=== PATIENT | female | born 1965 | race Caucasian/White ===

== ENCOUNTER 2019-04-04 17:08 | Emergency (ER) | payer OTHER ==
[2019-04-04 17:15] VITALS: BP 119/98
--- OUTSIDE RECORDS SUMMARY | 2019-04-04 17:23 | XMS REPORT ---
:1965 Author Organization [facility] Care Team Providers Name Role Phone Valerie Gutierrez Primary Care Physician Unavailable Allergies, Adverse Reactions, Alerts Allergy Code CodeSystem Reaction Severity Criticality Status Start Substance Date Moderate Medications Medication Medication Medication Start Stop Route Dose Status Fill Code CodeSystem Date Date Instructions trazodone 359675 RxNorm 2017-12- oral 150 mg completed for 30 - 04- tablet day(s) buspirone 305013 RxNorm 2018-07- oral 15 mg completed for 30 -06 09-19 tablet day(s) sertraline 827021 RxNorm 2018-05- oral 100 mg 1 completed Take 1 tablet -07 09-18 tablet twice a day twice a for 30 day(s) day trazodone 177860 RxNorm 2018-05- oral 150 mg 1 completed Take 1 tablet -04 28-18 tablet at bedtime at as needed for bedtime 30 day(s) sertraline 266703 RxNorm 2017-12 2019- oral 100 mg completed for 30 - 04-19 tablet day(s) sertraline 252898 RxNorm 2018-05- oral 100 mg active for 30 -19 12-18 tablet day(s) buspirone 943931 RxNorm 2018-03- oral 15 mg completed for 30 - 07-18 tablet day(s) buspirone 868613 RxNorm 2018-08- oral 15 mg active for 30 -19 12-18 tablet day(s) trazodone 817991 RxNorm 2018-07- oral 150 mg active for 30 -20 12-18 tablet day(s) Problems Problem Name Code CodeSystem Alternate Alternate Start End Status Narrative Code CodeSystem Date Date Recurrent [id number] SNOMED-CT 2019-0 Active depressive 4-05 disorder, current episode moderate 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, unspecified Relevant diagnostic tests/laboratory data Narrative No Information Procedures Procedure Code CodeSystem Target Date of Status Service Device Device Device Name Site Procedure Delivery Code Name UID Location Psychotherap [id number] SNOMED-CT () 2018-07-12 complete Mental y, 30 87 d Health- minutes with [facility] patient [address] with an [facility], and [facility], service [id number] (List [id number] separately in addition to the code for primary procedure) Psychotherap [id number] SNOMED-CT () 2018-06-06 complete Mental y, 45 04 d Health- minutes with [facility], [id number] [id number] Psychotherap [id number] SNOMED-CT () 2018-06-19 complete Mental y, 45 04 d Health- minutes with [address], [id number] Psychotherap [id number] SNOMED-CT () 2018-07-03 complete Mental y, 45 04 d Health- minutes with [facility], [id number] [id number] Psychotherap [id number] SNOMED-CT () 2018-07-18 complete Mental y, 45 04 d Health- minutes with [facility], [id number] Psychotherap 930476 SNOMED-CT () 2018-07-31 complete Mental y, 45 04 d Health- minutes with [facility], [id number] [id number] Psychotherap [id number] SNOMED-CT () 2018-09-11 complete Mental y, 45 04 d Health- minutes with [facility], [id number] [id number] Psychotherap 729192 SNOMED-CT () 2018-12-06 complete Mental y, 45 04 d Health- minutes with [address], [id number] [id number] Psychotherap 080571 SNOMED-CT () 2018-12-27 complete Mental y, 45 04 d Health- minutes with [facility], [id number] [id number] Psychotherap 364014 SNOMED-CT () 2019-01-14 complete Mental y, 45 04 d Health- minutes with [facility] patient [address], [id number] [id number] Psychotherap [id number] SNOMED-CT () 2019 complete Mental y, 45 04 d Health- minutes with [address], [id number] [id number] Psychotherap [id number] SNOMED-CT () 2019-02-27 complete Mental y, 45 04 d Health- minutes with [facility] patient [address], [id number] [phone] Psychotherap [id number] SNOMED-CT () 2018-08-28 complete Mental y, 45 04 d Health- minutes with [address], [id number] [id number] Psychotherap [id number] SNOMED-CT () 2018-09-25 complete Mental y, 45 04 d Health- minutes with [facility] patient [address], [id number] [phone] Psychotherap 102249 SNOMED-CT () 2018-10-11 complete Mental y, 45 04 d Health- minutes with [address], [id number] [id number] Psychotherap [id number] SNOMED-CT () 2018-10-25 complete Mental y, 45 04 d Health- minutes with [address], [id number] [id number] Psychotherap [id number] SNOMED-CT () 2018-11-08 complete Mental y, 45 04 d Health- minutes with [facility] patient [address], [id number] [id number] Psychotherap 687053 SNOMED-CT () 2018-11-22 complete Mental y, 45 04 d Health- minutes with [facility] patient [address], [id number] [phone] Office or [id number] SNOMED-CT () 2018-10-08 complete Mental other 7 d Health- outpatient [facility] visit for [address], established [id number] patient, [phone] which requires at least 2 of these 3 tavarez components: An expanded problem focused history; An expanded problem focused examination; Medical decision making of [facility] Office or [id number] SNOMED-CT () 2018-08-09 complete Mental other 7 d Health- outpatient [facility] visit for [address], established [id number] patient, [phone] which requires at least 2 of these 3 tavarez components: An expanded problem focused history; An expanded problem focused examination; Medical decision making of [facility] Office or [id number] SNOMED-CT () 2018-06-08 complete Mental other 7 d Health- outpatient [place] visit for [address], established [id number] patient, [phone] which requires at least 2 of these 3 tavarez components: An expanded problem focused history; An expanded problem focused examination; Medical decision making of [facility] Office or [id number] SNOMED-CT () 2018-07-12 complete Mental other 6 d Health- outpatient [facility] visit for [address], established [id number] patient, [phone] which requires at least 2 of these 3 tavarez components: A problem focused history; A problem focused examination; [facility] medical decision making. [facility] Office or [id number] SNOMED-CT () 2018-12-10 complete Mental other 6 d Health- outpatient [facility] visit for [address], established [id number] patient, [phone] which requires at least 2 of these 3 tavarez components: A problem focused history; A problem focused examination; [facility] [place] medical decision making. [facility] Office or [id number] SNOMED-CT () 2019-02-04 complete Mental other 6 d Health- outpatient [facility] visit for [address], established [id number] patient, [phone] which requires at least 2 of these 3 tavarez components: A problem focused history; A problem focused examination; [facility] [place] medical decision making. [facility] SNOMED-CT () 2018-05-23 complete Mental d [facility] [address] [place], [place], [id number] Encounters/Encounter Diagnoses Encounter Name Encounter Diagnosis Diagnosis Diagnosis Date of Service Code Code Name CodeSystem Diagnosis Delivery Location Psychotherapy - [id number] Post-traumati SNOMED-CT 2019-02-27 Behavioral Individual 30 c stress Health min disorder, [facility] [address] unspecified [place], [place], [id number] Vital Signs No Information Social History Element Description Description Start End Code CodeSystem AdditionalInfo Date Date SexAssignedAtBirth Female 1964-02 F AdministrativeGender 2-18 Hospital Discharge Instructions Reason For Referral Medical Equipment FDA Assessments
--- OUTSIDE RECORDS SUMMARY | 2019-04-04 17:23 | XMS REPORT ---
:1965 Author Organization [facility] Care Team Providers Name Role Phone Valerie Gutierrez Primary Care Physician Unavailable Allergies, Adverse Reactions, Alerts Allergy Code CodeSystem Reaction Severity Criticality Status Start Substance Date Moderate Medications Medication Medication Medication Start Stop Route Dose Status Fill Code CodeSystem Date Date Instructions sertraline 397870 RxNorm 2017-12- oral 100 mg completed for 30 -03 06-19 tablet day(s) sertraline 917507 RxNorm 2018-05- oral 100 mg active for 30 -07 02-18 tablet day(s) trazodone 850294 RxNorm 2018-05- oral 150 mg 1 completed Take 1 tablet -04 28-18 tablet at bedtime at as needed for bedtime 30 day(s) trazodone 933067 RxNorm 2017-12- oral 150 mg completed for 30 -03 06-03 tablet day(s) sertraline 252854 RxNorm 2018-05- oral 100 mg 1 completed Take 1 tablet -07 09-18 tablet twice a day twice a for 30 day(s) day buspirone 107161 RxNorm 2018-07- oral 15 mg completed for 30 -18 -19 tablet day(s) trazodone 327975 RxNorm 2018-07- oral 150 mg active for 30 -20 12-18 tablet day(s) buspirone 063286 RxNorm 2018-03- oral 15 mg completed for 30 - 07-18 tablet day(s) buspirone 427050 RxNorm 2018-08- oral 15 mg active for 30 - 12-18 tablet day(s) Problems Problem Name Code CodeSystem Alternate Alternate Start End Status Narrative Code CodeSystem Date Date Recurrent [id number] SNOMED-CT 2019-0 Active depressive 4-05 disorder, current episode moderate Post-traumat 54927830 SNOMED-CT 2019-0 Active ic stress 3-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, service [id number] (List [id number] separately in addition to the code for primary procedure) Psychotherap [id number] SNOMED-CT () 2018-06-06 complete Mental y, 45 04 d Health- minutes with [facility], [id number] [phone] Psychotherap 794881 SNOMED-CT () 2018-06-19 complete Mental y, 45 04 d Health- minutes with [address], [id number] [id number] Psychotherap 954263 SNOMED-CT () 2018-07-03 complete Mental y, 45 04 d Health- minutes with [place], [id number] [id number] Psychotherap 723673 SNOMED-CT () 2018-07-18 complete Mental y, 45 04 d Health- minutes with [place], [id number] [phone] Psychotherap [id number] SNOMED-CT () 2018-07-31 complete Mental y, 45 04 d Health- minutes with [facility], [id number] [id number] Psychotherap 338875 SNOMED-CT () 2018-09-11 complete Mental y, 45 04 d Health- minutes with [facility], [id number] [phone] Psychotherap 044368 SNOMED-CT () 2018-12-06 complete Mental y, 45 04 d Health- minutes with [address], [id number] [phone] Psychotherap 931731 SNOMED-CT () 2018-12-27 complete Mental y, 45 04 d Health- minutes with [facility], [id number] [id number] Psychotherap 942016 SNOMED-CT () 2019-01-14 complete Mental y, 45 04 d Health- minutes with [facility] patient [address], [id number] [id number] Psychotherap 848318 SNOMED-CT () 2018-08-28 complete Mental y, 45 04 d Health- minutes with [facility] patient [address], [id number] [id number] Psychotherap 099620 SNOMED-CT () 2018-09-25 complete Mental y, 45 04 d Health- minutes with [facility] patient [address], [id number] [phone] Psychotherap 340210 SNOMED-CT () 2018-10-11 complete Mental y, 45 04 d Health- minutes with [facility] patient [address], [id number] [phone] Psychotherap 980658 SNOMED-CT () 2018-10-25 complete Mental y, 45 04 d Health- minutes with [facility] patient [address], [id number] [phone] Psychotherap 156284 SNOMED-CT () 2018-11-08 complete Mental y, 45 04 d Health- minutes with [facility] patient [address], [id number] [phone] Psychotherap [id number] SNOMED-CT () 2018-11-22 complete Mental y, 45 04 d Health- minutes with [facility] patient [address], [id number] [phone] Office or [id number] SNOMED-CT () 2018-10-08 complete Mental other 7 d Health- outpatient [facility] visit for [address], established [id number] patient, [phone] which requires at least 2 of these 3 tavarez components: An expanded problem focused history; An expanded problem focused examination; Medical decision making of [facility] Office or [id number] SNOMED-CT () 2018-08-09 complete Mental other 7 d Health- outpatient [place] visit for [address], established [id number] patient, [phone] which requires at least 2 of these 3 tavarez components: An expanded problem focused history; An expanded problem focused examination; Medical decision making of [facility] Office or [id number] SNOMED-CT () 2018-06-08 complete Mental other 7 d Health- outpatient [facility] visit for [address], [facility] [id number] patient, [phone] which requires at least 2 of these 3 tavarez components: An expanded problem focused history; An expanded problem focused examination; Medical decision making of [facility] or [id number] SNOMED-CT () 2018-07-12 complete Mental other 6 d Health- outpatient [place] visit for [address], [facility] [id number] patient, [phone] which requires at least 2 of these 3 tavarez components: A problem focused history; A problem focused examination; [facility] medical decision making. [facility] Office or [id number] SNOMED-CT () 2018-12-10 complete Mental other 6 d Health- outpatient [facility] visit for [address] [id number] patient, [phone] which requires at least 2 of these 3 tavarez components: A problem focused history; A problem focused examination; [facility] medical decision making. [facility] SNOMED-CT () 2018-05-23 complete Mental d Health- [facility], [id number] [phone] Encounters/Encounter Diagnoses Encounter Name Encounter Diagnosis Diagnosis Diagnosis Date of Service Code Code Name CodeSystem Diagnosis Delivery Location [facility] [id number] Post-traumati SNOMED-CT 2019-01-14 Behavioral Individual 30 c stress Health min disorder, [place] [address] unspecified [place], [place], [id number] Vital Signs No Information Social History Element Description Description Start End Code CodeSystem AdditionalInfo Date Date SexAssignedAtBirth Female 1965-1 F AdministrativeGender 2-18 Hospital Discharge Instructions Reason For Referral Medical Equipment FDA Assessments
--- OUTSIDE RECORDS SUMMARY | 2019-04-04 17:23 | XMS REPORT ---
:1965 Author Organization [facility] Care Team Providers Name Role Phone Paula Gutierrezh Primary Care Physician Unavailable Allergies, Adverse Reactions, Alerts Allergy Code CodeSystem Reaction Severity Criticality Status Start Substance Date Moderate Medications Medication Medication Medication Start Stop Route Dose Status Fill Code CodeSystem Date Date Instructions trazodone 631791 RxNorm 2018-05- oral 150 mg 1 completed Take 1 tablet -04 28-18 tablet at bedtime at as needed for bedtime 30 day(s) trazodone 825415 RxNorm 2017-12- oral 150 mg completed for 30 - 04-03 tablet day(s) sertraline 051340 RxNorm 2017-12- oral 100 mg completed for 30 -03 06-19 tablet day(s) buspirone 592931 RxNorm 2018-03- oral 15 mg completed for 30 -09 09-18 tablet day(s) sertraline 953538 RxNorm 2018-05- oral 100 mg 1 completed Take 1 tablet -07 09-18 tablet twice a day twice a for 30 day(s) day buspirone 241823 RxNorm 2018-08- oral 15 mg active for 30 -19 12-18 tablet day(s) sertraline 657672 RxNorm 2018-05- oral 100 mg active for 30 -19 12-18 tablet day(s) buspirone 435164 RxNorm 2018-07- oral 15 mg completed for 30 -18 -19 tablet day(s) trazodone 948069 RxNorm 2018-07- oral 150 mg active for 30 -20 12-18 tablet day(s) Problems Problem Name Code CodeSystem Alternate Alternate Start End Status Narrative Code CodeSystem Date Date Post-traumat 82637570 SNOMED-CT 2018- Active ic stress 3-22 disorder, unspecified Recurrent 34207390 SNOMED-CT 0 Active depressive 4-05 disorder, current episode moderate Relevant diagnostic tests/laboratory data Narrative No Information Procedures Procedure Code CodeSystem Target Date of Status Service Device Device Device Name Site Procedure Delivery Code Name UID Location Psychotherap [id number] SNOMED-CT () 2018-07-12 complete Mental y, 30 87 d Health- minutes with [facility] patient [address] with an [facility], and [facility], service [id number] (List [id number] separately in addition to the code for primary procedure) Psychotherap [id number] SNOMED-CT () 2018-06-06 complete Mental y, 45 04 d Health- minutes with [facility], [id number] [phone] Psychotherap 291143 SNOMED-CT () 2018-06-19 complete Mental y, 45 04 d Health- minutes with [facility], [id number] [phone] Psychotherap 758155 SNOMED-CT () 2018-07-03 complete Mental y, 45 04 d Health- minutes with [place], [id number] [phone] Psychotherap 194850 SNOMED-CT () 2018-07-18 complete Mental y, 45 04 d Health- minutes with [facility], [id number] [phone] Psychotherap 649957 SNOMED-CT () 2018-07-31 complete Mental y, 45 04 d Health- minutes with [place], [id number] [phone] Psychotherap 733390 SNOMED-CT () 2018-09-11 complete Mental y, 45 04 d Health- minutes with [facility], [id number] [phone] Psychotherap 708817 SNOMED-CT () 2018-12-06 complete Mental y, 45 04 d Health- minutes with [place], [id number] [phone] Psychotherap 622632 SNOMED-CT () 2018-12-27 complete Mental y, 45 04 d Health- minutes with [place], [id number] [phone] Psychotherap 844952 SNOMED-CT () 2019-01-14 complete Mental y, 45 04 d Health- minutes with [place] patient [address], [id number] [phone] Psychotherap 747188 SNOMED-CT () 2019 complete Mental y, 45 04 d Health- minutes with [facility] patient [address], [id number] [phone] Psychotherap 822309 SNOMED-CT () 2018-08-28 complete Mental y, 45 04 d Health- minutes with [facility] patient [address], [id number] [id number] Psychotherap 999313 SNOMED-CT () 2018-09-25 complete Mental y, 45 04 d Health- minutes with [place] patient [address], [id number] [phone] Psychotherap 041894 SNOMED-CT () 2018-10-11 complete Mental y, 45 04 d Health- minutes with [facility] patient [address], [id number] [phone] Psychotherap 283395 SNOMED-CT () 2018-10-25 complete Mental y, 45 04 d Health- minutes with [place] patient [address], [id number] [phone] Psychotherap 606927 SNOMED-CT () 2018-11-08 complete Mental y, 45 04 d Health- minutes with [facility] patient [address], [id number] [phone] Psychotherap 044232 SNOMED-CT () 2018-11-22 complete Mental y, 45 04 d Health- minutes with [place] patient [address], [id number] [phone] Office or [id number] SNOMED-CT () 2018-10-08 complete Mental other 7 d Health- outpatient [facility] visit for [address], of an [place], established [id number] patient, [phone] which requires at least 2 of these 3 tavarez components: An expanded problem focused history; An expanded problem focused examination; Medical decision making of [facility] Office or [id number] SNOMED-CT () 2018-08-09 complete Mental other 7 d Health- outpatient [facility] visit for [address], established [id number] patient, [phone] which requires at least 2 of these 3 tavarez components: An expanded problem focused history; An expanded problem focused examination; Medical decision making of [facility] Office or 060613 SNOMED-CT () 2018-06-08 complete Mental other 7 d Health- outpatient [place] visit for [address], established [id number] patient, [phone] which requires at least 2 of these 3 tavarez components: An expanded problem focused history; An expanded problem focused examination; Medical decision making of [facility] Office or [id number] SNOMED-CT () 2018-07-12 complete Mental other 6 d Health- outpatient [place] visit for [address], established [id number] patient, [phone] which requires at least 2 of these 3 tavarez components: A problem focused history; A problem focused examination; [facility] [place] medical decision making. [facility] Office [place] [id number] SNOMED-CT () 2018-12-10 complete Mental other 6 d Health- outpatient [place] visit for [address], established [id number] patient, [phone] which requires at least 2 of these 3 tavarez components: A problem focused history; A problem focused examination; [facility] medical decision making. [facility] Office [place] [id number] SNOMED-CT () 2019-02-04 complete Mental other 6 d Health- outpatient [place] visit for [address], established [id number] patient, [phone] which requires at least 2 of these 3 tavarez components: A problem focused history; A problem focused examination; [facility] medical decision making. [facility] SNOMED-CT () 2018-05-23 complete Mental d Health- [place] [address], [id number] [phone] Encounters/Encounter Diagnoses Encounter Name Encounter Diagnosis Diagnosis Diagnosis Date of Service Code Code Name CodeSystem Diagnosis Delivery Location [facility] [id number] Post-traumati SNOMED-CT 2019 Behavioral Individual 30 c stress Health min disorder, [facility] [address] unspecified [place], [place], [id number] Vital Signs No Information Social History Element Description Description Start End Code CodeSystem AdditionalInfo Date Date SexAssignedAtBirth Female 1965-1 F AdministrativeGender 2-18 Hospital Discharge Instructions Reason For Referral Medical Equipment FDA Assessments
--- OUTSIDE RECORDS SUMMARY | 2019-04-04 17:23 | XMS REPORT ---
:1965 Author Organization [facility] Care Team Providers Name Role Phone Valerie Gutierrez Primary Care Physician Unavailable Allergies, Adverse Reactions, Alerts Allergy Code CodeSystem Reaction Severity Criticality Status Start Substance Date Moderate Medications Medication Medication Medication Start Stop Route Dose Status Fill Code CodeSystem Date Date Instructions trazodone 902905 RxNorm 2018-05- oral 150 mg 1 completed Take 1 tablet -11-07 tablet at bedtime at as needed for bedtime 30 day(s) buspirone 101831 RxNorm 2018-03- oral 15 mg completed for 30 -09 09-18 tablet day(s) buspirone 731921 RxNorm 2018-07- oral 15 mg completed for 30 -18 -19 tablet day(s) sertraline 916300 RxNorm 2018-05- oral 100 mg active for 30 -19 -18 tablet day(s) trazodone 527670 RxNorm 2017-12- oral 150 mg completed for 30 -14 04-03 tablet day(s) sertraline 601132 RxNorm 2017-12 2019- oral 100 mg completed for 30 -14 -19 tablet day(s) trazodone 690975 RxNorm 2018-07- oral 150 mg active for 30 -20 -18 tablet day(s) sertraline 898419 RxNorm 2018-05- oral 100 mg 1 completed Take 1 tablet -07 09-18 tablet twice a day twice a for 30 day(s) day buspirone 520393 RxNorm 2018-08- oral 15 mg active for 30 -19 -18 tablet day(s) Problems Problem Name Code CodeSystem Alternate Alternate Start End Status Narrative Code CodeSystem Date Date Recurrent 17350925 SNOMED-CT 2019-0 Active depressive 4-05 disorder, current episode moderate 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, service [id number] (List [id number] separately in addition to the code for primary procedure) Psychotherap [id number] SNOMED-CT () 2018-06-06 complete Mental y, 45 04 d Health- minutes with [facility], [id number] [id number] Psychotherap [id number] SNOMED-CT () 2018-06-19 complete Mental y, 45 04 d Health- minutes with [address], [id number] [id number] Psychotherap [id number] SNOMED-CT () 2018-07-03 complete Mental y, 45 04 d Health- minutes with [place], [id number] [id number] Psychotherap [id number] SNOMED-CT () 2018-07-18 complete Mental y, 45 04 d Health- minutes with [facility], [id number] [id number] Psychotherap [id number] SNOMED-CT () 2018-07-31 complete Mental y, 45 04 d Health- minutes with [place], [id number] [phone] Psychotherap [id number] SNOMED-CT () 2018-09-11 complete Mental y, 45 04 d Health- minutes with [facility], [id number] [id number] Psychotherap [id number] SNOMED-CT () 2018-12-06 complete Mental y, 45 04 d Health- minutes with [address], [id number] [id number] Psychotherap [id number] SNOMED-CT () 2018-12-27 complete Mental y, 45 04 d Health- minutes with [place], [id number] [phone] Psychotherap [id number] SNOMED-CT () 2019-01-14 complete Mental y, 45 04 d Health- minutes with [place] patient [address], [id number] [id number] Psychotherap [id number] SNOMED-CT () 2018-08-28 complete Mental y, 45 04 d Health- minutes with [facility] patient [address], [id number] [id number] Psychotherap [id number] SNOMED-CT () 2018-09-25 complete Mental y, 45 04 d Health- minutes with [facility] patient [address], [id number] [phone] Psychotherap [id number] SNOMED-CT () 2018-10-11 complete Mental y, 45 04 d Health- minutes with [place] patient [address], [id number] [phone] Psychotherap [id number] SNOMED-CT () 2018-10-25 complete Mental y, 45 04 d Health- minutes with [facility] patient [address], [id number] [id number] Psychotherap [id number] SNOMED-CT () 2018-11-08 complete Mental y, 45 04 d Health- minutes with [place] patient [address], [id number] [id number] Psychotherap [id number] SNOMED-CT () 2018-11-22 complete Mental y, 45 04 d Health- minutes with [facility] patient [address], [id number] [phone] Office [place] [id number] SNOMED-CT () 2018-10-08 complete Mental other 7 d Health- outpatient [place] visit for [address], established [id number] patient, [id number] which requires at least 2 of these 3 tavarez components: An expanded problem focused history; An expanded problem focused examination; Medical decision making of [facility] Office [place] [id number] SNOMED-CT () 2018-08-09 complete Mental other 7 d Health- outpatient [facility] visit for [address], established [id number] patient, [id number] which requires at least 2 of these 3 tavarez components: An expanded problem focused history; An expanded problem focused examination; Medical decision making of [facility] or [id number] SNOMED-CT () 2018-06-08 complete Mental other 7 d Health- outpatient [facility] visit for [address], established [id number] patient, [id number] which requires at least 2 of these 3 tavarez components: An expanded problem focused history; An expanded problem focused examination; Medical decision making of [facility] or [id number] SNOMED-CT () 2018-07-12 complete Mental other 6 d Health- outpatient [facility] visit for [address], [facility] [place] [id number] patient, [id number] which requires at least 2 of these 3 tavarez components: A problem focused history; A problem focused examination; [place] medical decision making. [facility] Office or [id number] SNOMED-CT () 2018-12-10 complete Mental other 6 d Health- outpatient [place] visit for [address], [facility] [place] [id number] patient, [phone] which requires at least 2 of these 3 tavarez components: A problem focused history; A problem focused examination; [place] medical decision making. [facility] Office or [id number] SNOMED-CT () 2019-02-04 complete Mental other 6 d Health- outpatient [place] visit for [address], established [id number] patient, [id number] which requires at least 2 of these 3 tavarez components: A problem focused history; A problem focused examination; [place] [facility] () 2018-05-23 complete Mental d Health- [place] [address], [id number] [phone] Encounters/Encounter Diagnoses Encounter Name Encounter Diagnosis Diagnosis Diagnosis Date of Service Code Code Name CodeSystem Diagnosis Delivery Location [facility] [id number] Post-traumati SNOMED-CT 2019 Behavioral Individual 30 c stress Health min disorder, Clinic , , unspecified , Vital Signs No Information Social History Element Description Description Start End Code CodeSystem AdditionalInfo Date Date SexAssignedAtBirth Female 1964-02 F AdministrativeGender 2-18 Hospital Discharge Instructions Reason For Referral Medical Equipment FDA Assessments
[2019-04-04] MEDS ORDERED: Albuterol/Ipratropium NEB.SOL* Albuterol 2.5 MG/Ipratropium 0.5 MG 3 ML INH ONE (17:58)
[2019-04-04] MEDS ORDERED: A lbuterol Hfa (PREPAK) 1 MDI - ED TAKE HOME DISPENSING ONLY INHH ONE (19:17)
--- NOTE | 2019-04-04 19:17 | ED ---
Respiratory - HPI Summary HPI Summary: 54 year old female presents with cough for the past month. She admits occasional sore throat. She states she has been short of breath. Has had occasional dry cough. She states her fevers have resolved. She states that she ran out of her inhaler. She is concerned that this may get worse. She is nonsmoker. She denies abdominal pain. No chest pain currently. No nausea vomiting. She has some nasal congestion. - History of Current Complaint Chief Complaint: EDGeneral Stated Complaint: GENERAL ILLNESS PER PT Time Seen by Provider: 04/04/19 17:49 Pain Intensity: 6 Sputum Amount: None - Allergy/Home Medications Allergies/Adverse Reactions: Allergies Allergy/AdvReac Type Severity Reaction Status Date / Time Penicillins Allergy Anaphylatic Verified 04/04/19 17:14 Shock valsartan [From Diovan] Allergy Hives Verified 04/04/19 17:14 PMH/Surg Hx/FS Hx/Imm Hx Endocrine/Hematology History: Reports: Hx Diabetes - BORDERLINE Cardiovascular History: Reports: Hx Angina, Hx Hypercholesterolemia, Hx Hypertension Denies: Hx Coronary Artery Disease, Hx Myocardial Infarction, Hx Pacemaker/ ICD Respiratory History: Reports: Hx Asthma, Other Respiratory Problems/Disorders - HX PNA Denies: Hx Chronic Obstructive Pulmonary Disease (COPD) History: Denies: Hx Chronic Renal Failure, Hx Renal Disease Sensory History: Denies: Hx Hearing Aid Psychiatric History: Denies: Hx Panic Disorder - Cancer History Hx Chemotherapy: No Hx Radiation Therapy: No - Surgical History Surgery Procedure, Year, and Place: C SECTION 06/1999. BREAST REDUCTION -2001. Rt KNEE- ARTHROSCOPIC- 05/2003. TUBAL LIGATION. BOWEL- REPAIR - THEN INFECTION - I&D ALSO - Immunization History Immunizations Up to Date: Yes Infectious Disease History: No Infectious Disease History: Denies: Traveled Outside the [place] in Last 30 Days - Family History Known Family History: Negative: Blood Disorder - Social History Alcohol Use: Rare Substance Use Type: Reports: None Hx Tobacco Use: No Smoking Status (MU): Never Smoked Tobacco Review of Systems Positive: Fever Negative: Chest Pain Positive: Shortness Of Breath, Cough Negative: Abdominal Pain All Other Systems Reviewed And Are Negative: Yes Physical Exam Triage Information Reviewed: Yes Vital Signs On Initial Exam: Initial Vitals Temp Pulse Resp BP Pulse Ox 97.3 F 90 20 119/98 94 04/04/19 17:11 04/04/19 17:11 04/04/19 17:11 04/04/19 17:11 04/04/19 17:11 Vital Signs Reviewed: Yes Appearance: Positive: Well-Appearing Skin: Positive: Warm, Dry Head/Face: Positive: Normal Head/Face Inspection Eyes: Positive: Normal, EOMI, KENTRELL, Conjunctiva Clear ENT: Positive: Normal ENT inspection, Pharynx normal, TMs normal Respiratory/Lung Sounds: Positive: Breath Sounds Present, Wheezes Cardiovascular: Positive: Normal, RRR Abdomen Description: Positive: Nontender, Soft Bowel Sounds: Positive: Present Musculoskeletal: Positive: Normal Neurological: Positive: Normal Psychiatric: Positive: Normal Procedures - Sedation Patient Received Moderate/Deep Sedation with Procedure: No Diagnostics - Vital Signs Vital Signs Temp Pulse Resp BP Pulse Ox 04/04/19 18:17 16 04/04/19 17:11 97.3 F 90 20 119/98 94 - Laboratory Lab Statement: Any lab studies that have been ordered have been reviewed, and results considered in the medical decision making process. - Radiology chest Radiology Interpretation Completed By: ED Physician Summary of Radiographic Findings: no pneumonia Re-Evaluation - Re-Evaluation First Eval Re-Evaluation Time: 19:00 Change: Improved Comment: lungs CTA Disposition - Course Course Of Treatment: 54 year old female presents with cough for the past month. She admits occasional sore throat. She states she has been short of breath. Has had occasional dry cough. She states her fevers have resolved. She states that she ran out of her inhaler. She is concerned that this may get worse. She is nonsmoker. She denies abdominal pain. No chest pain currently. No nausea vomiting. She has some nasal congestion. On exam slight wheezing noted. Improved after breathing treatment. Will place on prednisone. Given inhaler to home with. Chest x-ray normal. Told to follow up primary. Patient understands and agrees with plan. - Differential Dx - Cardiopulmonary Differential Diagnoses - Cardiopulmonary: Bronchitis, Influenza, Lower Resp Infection - Diagnoses Provider Diagnoses: Bronchitis Discharge ED - Sign-Out/Discharge Documenting (check all that apply): Patient Departure - Discharge Plan Condition: Good Disposition: HOME Prescriptions: Albuterol HFA INHALER* [Ventolin HFA Inhaler*] 1 - 2 puff INH Q4H PRN #1 mdi PRN Reason: Shortness Of Breath predniSONE 50 mg TAB [Deltasone 50 mg TAB] 50 mg PO DAILY #4 tab Patient Education Materials: Acute Bronchitis (ED) Referrals: Deisi Masters MD [Primary Care Provider] - Additional Instructions: Use inhaler up to two puffs every 4 hours for cough and wheezing Take steroid once a day for 4 more days starting tomorrow Take Tylenol or ibuprofen for pain every 6 hours Follow up with primary within 5 days Return to ED if develop any new or worsening symptoms - Billing Disposition and Condition Condition: GOOD Disposition: Home
== END 2019-04-04 19:56 | disposition home or self-care (01) ==
LOC: ED 17:08
DX: J40 Bronchitis, not specified as acute or chronic (principal); R73.03 Prediabetes; I10 Essential (primary) hypertension; Z88.0 Allergy status to penicillin; Z88.8 Allergy status to other drugs, medicaments and biological substances
CPT/HCPCS: 71046; 99283; A9270-GY; J7512

== ENCOUNTER 2020-02-17 12:53 | Inpatient (IN) ==
[2020-02-17 14:56] LABS: ABS Lymphocytes 0.7 10^3/ul (1.0-4.8); ABS Monocytes 0.3 10^3/ul (0-0.8); ABS Neutrophils 5.4 10^3/ul (1.5-7.7); Eosinophil % 0.6 %; Hematocrit 40 % (35-47); Hemoglobin 12.6 g/dL (12.0-16.0); Lymphocyte % 10.2 %; Mean Corpuscular HGB Conc 32 g/dL (31-36); Mean Corpuscular Hemoglobin 29 pg (27-31); Mean Corpuscular Volume 92 fL (80-97); Mean Platelet Volume 8.2 fL (7.4-10.4); Platelet Count 192 10^3/uL (150-450); Red Blood Count 4.34 10^6 /uL (3.70-4.87); Red Cell Distribution Width 21 % (10-15); White Blood Count 6.4 10^3/uL (3.5-10.8)
[2020-02-17 15:21] LABS: Troponin I 0.01 ng/mL (<0.03)
[2020-02-17 15:35] LABS: Albumin 3.7 g/dL (3.2-5.2); Albumin/Globulin Ratio 1.5 (1-3); BUN/Creatinine Ratio 30.1 (8-20); C Reactive Protein 5.25 mg/L (<8.01); Calcium 9.2 mg/dL (8.6-10.3); EGFR African American 86.4 (>60); EGFR Non-African American 71.4 (>60); Globulin 2.4 g/dL (2-4); Potassium 4.1 mmol/L (3.5-5.0); Total Bilirubin 0.5 mg/dL (0.2-1.0); Total Protein 6.1 g/dL (6.4-8.9)
[2020-02-17] MEDS ORDERED: Iodixanol (CONTRAST) 320 MG/ML 100 ML SDV IV ONE ×3 (16:46→22:12)
[2020-02-17 17:29] LABS: Activated Partial Thrombo Time 28.1 seconds (26.0-38.0); INR 0.99 (0.82-1.09)
[2020-02-17] MEDS ORDERED: NS 0.9% 1000 ml BAG 1,000 ML IV ONE (18:00)
[2020-02-17 21:13] LABS: TSH Ultra Thyroid Stim Horm 1.37 mcIU/mL (0.34-5.60)
[2020-02-18] MEDS ORDERED: Furosemide 40 mg/4 ml IV VIAL IV SLOW PU ONE ×2 (02:06→06:00)
[2020-02-18] MEDS ORDERED: Albuterol HFA INHALER 8 gm MDI INH PRN (04:03)
[2020-02-18] MEDS: Enoxaparin 60 MG/0.6 ML SYR SUBCUT SCH (06:54)
[2020-02-18 06:58] LABS: ABS Eosinophils 0.1 10^3/ul (0-0.6); ABS Lymphocytes 0.6 10^3/ul (1.0-4.8); ABS Monocytes 0.6 10^3/ul (0-0.8); ABS Neutrophils 5.9 10^3/ul (1.5-7.7); Eosinophil % 1.4 %; Hematocrit 41 % (35-47); Hemoglobin 12.9 g/dL (12.0-16.0); Lymphocyte % 8.4 %; Mean Corpuscular HGB Conc 32 g/dL (31-36); Mean Corpuscular Hemoglobin 29 pg (27-31); Mean Corpuscular Volume 91 fL (80-97); Mean Platelet Volume 8.5 fL (7.4-10.4); Platelet Count 187 10^3/uL (150-450); Red Blood Count 4.44 10^6 /uL (3.70-4.87); Red Cell Distribution Width 21 % (10-15); White Blood Count 7.2 10^3/uL (3.5-10.8)
[2020-02-18 07:21] LABS: BUN/Creatinine Ratio 20.9 (8-20); Calcium 8.9 mg/dL (8.6-10.3); EGFR African American 77.7 (>60); EGFR Non-African American 64.2 (>60); Potassium 4.5 mmol/L (3.5-5.0)
[2020-02-18] MEDS: CMCS: Meloxicam 7.5 mg TAB (NF) PO SCH ×2 (07:22→21:05)
[2020-02-18] MEDS ORDERED: Fluticasone NASAL SPRAY 50MCG 16 gm SPRAY BTL INTRANASAL PRN (09:00)
[2020-02-18] MEDS: Mometasone/Formoter 200/5 MDI INH SCH ×2 (09:43→20:40)
[2020-02-18] MEDS ORDERED: Pneumococcal Vac 23-Polyvalent IM ONE (10:00)
[2020-02-18] MEDS: Furosemide 40 mg/4 ml IV VIAL IV SCH (11:20)
[2020-02-18] MEDS ORDERED: Perflutren Lipid Microsphere 3 ML VIAL ONE (12:14)
[2020-02-19] MEDS: Enoxaparin 60 MG/0.6 ML SYR SUBCUT SCH (07:28)
[2020-02-19] MEDS: Furosemide 40 mg/4 ml IV VIAL IV SCH (07:28)
[2020-02-19] MEDS: CMCS: Meloxicam 7.5 mg TAB (NF) PO SCH ×2 (07:33→22:07)
[2020-02-19] MEDS: Mometasone/Formoter 200/5 MDI INH SCH ×2 (08:38→21:00)
[2020-02-19 09:22] LABS: BUN/Creatinine Ratio 21.5 (8-20); Blood Urea Nitrogen 17 mg/dL (6-24); CO2 Carbon Dioxide 36 mmol/L (22-32); Calcium 8.8 mg/dL (8.6-10.3); Chloride 102 mmol/L (101-111); EGFR African American 91.4 (>60); EGFR Non-African American 75.6 (>60); Glucose 120 mg/dL (70-100); Sodium 141 mmol/L (135-145)
[2020-02-19 10:24] LABS: Anion Gap 3 mmol/L (2-11)
[2020-02-20] MEDS: Mometasone/Formoter 200/5 MDI INH SCH (07:25)
[2020-02-20] MEDS: Enoxaparin 60 MG/0.6 ML SYR SUBCUT SCH (08:36)
[2020-02-20] MEDS: CMCS: Meloxicam 7.5 mg TAB (NF) PO SCH (08:36)
[2020-02-20 09:43] LABS: BUN/Creatinine Ratio 20.2 (8-20); Blood Urea Nitrogen 18 mg/dL (6-24); Calcium 9.1 mg/dL (8.6-10.3); Chloride 101 mmol/L (101-111); EGFR African American 79.7 (>60); EGFR Non-African American 65.8 (>60); Glucose 131 mg/dL (70-100); Potassium 4.5 mmol/L (3.5-5.0); Sodium 143 mmol/L (135-145)
[2020-02-20 09:49] LABS: CO2 Carbon Dioxide 42 mmol/L (22-32)
[2020-02-20 11:37] VITALS: BP 134/71
== END 2020-02-20 16:25 | disposition home health service (06) | DRG 143 ==
LOC: ED 12:53 → MED 02-18 01:59 → SSU 02-19 15:02
PROVIDERS: ADMIT Student in an Organized Health Care Education/Training Program; ATTEND Internal Medicine

== ENCOUNTER 2020-03-02 06:18 | Inpatient (IN) ==
[2020-03-02 09:04] LABS: Hematocrit 39 % (35-47); Hemoglobin 12.2 g/dL (12.0-16.0); Mean Corpuscular HGB Conc 31 g/dL (31-36); Mean Corpuscular Hemoglobin 29 pg (27-31); Mean Corpuscular Volume 91 fL (80-97); Mean Platelet Volume 8.9 fL (7.4-10.4); Platelet Count 227 10^3/uL (150-450); Red Blood Count 4.26 10^6 /uL (3.70-4.87); Red Cell Distribution Width 21 % (10-15); White Blood Count 6.9 10^3/uL (3.5-10.8)
[2020-03-02 09:22] LABS: Albumin 3.6 g/dL (3.2-5.2); Albumin/Globulin Ratio 1.2 (1-3); BUN/Creatinine Ratio 17.1 (8-20); C Reactive Protein 8.92 mg/L (<8.01); Calcium 9.2 mg/dL (8.6-10.3); EGFR African American 95.6 (>60); Globulin 3.1 g/dL (2-4); Potassium 4.1 mmol/L (3.5-5.0); Total Bilirubin 0.4 mg/dL (0.2-1.0); Total Protein 6.7 g/dL (6.4-8.9)
[2020-03-02 09:23] LABS: Troponin I 0.01 ng/mL (<0.03)
[2020-03-02 09:36] LABS: ABS Basophils 0.1 10^3/ul (0-0.2); ABS Eosinophils 0.1 10^3/ul (0-0.6); ABS Lymphocytes 0.8 10^3/ul (1.0-4.8); ABS Monocytes 0.5 10^3/ul (0-0.8); ABS Neutrophils 5.4 10^3/ul (1.5-7.7); Eosinophil % 1.3 %; Lymphocyte % 11.3 %; Nucleated Red Blood Cells % 0.1
[2020-03-02 10:12] LABS: Ferritin 23.5 ng/mL (11-307)
[2020-03-02] MEDS ORDERED: Iodixanol (CONTRAST) 320 MG/ML 100 ML SDV IV ONE (10:52)
[2020-03-02] MEDS ORDERED: Vancomycin 1,500 MG in NS 0.9% 250 ml 250 ML IVPB ONE (12:45)
[2020-03-02] MEDS ORDERED: Fluticasone NASAL SPRAY 50MCG 16 gm SPRAY BTL INTRANASAL PRN (16:48)
[2020-03-02] MEDS ORDERED: Dextrose 50% Syringe 50 ml 25 GM/50 ML SYRINGE IV PUSH PRN (17:58)
[2020-03-02] MEDS ORDERED: Vancomycin per Pharmacy 1 EA NOTE FOLLOW UP SCH (18:00)
[2020-03-02] MEDS ORDERED: Vancomycin 2000 MG X 1 dose IVPB ONE (18:00)
[2020-03-02] MEDS ORDERED: Vancomycin 500 MG in NS 0.9% 250 ML IVPB ONE (18:15)
[2020-03-02] MEDS: Aztreonam 2 GM in NS 0.9% 100 ml BAG 100 ML IV SCH (23:18)
[2020-03-02] MEDS: Enoxaparin 40 MG/0.4 ML SYR SUBCUT SCH (23:37)
[2020-03-03] MEDS: Aztreonam 2 GM in NS 0.9% 100 ml BAG 100 ML IV SCH (05:36)
[2020-03-03] MEDS ORDERED: VANCOMYCIN 1500 MG IVPB SCH (07:00)
[2020-03-03 07:49] LABS: ABS Eosinophils 0.1 10^3/ul (0-0.6); ABS Lymphocytes 0.5 10^3/ul (1.0-4.8); ABS Monocytes 0.4 10^3/ul (0-0.8); ABS Neutrophils 4.9 10^3/ul (1.5-7.7); Eosinophil % 1.4 %; Hematocrit 38 % (35-47); Lymphocyte % 8.2 %; Mean Corpuscular HGB Conc 32 g/dL (31-36); Mean Corpuscular Hemoglobin 29 pg (27-31); Mean Corpuscular Volume 91 fL (80-97); Mean Platelet Volume 9.1 fL (7.4-10.4); Platelet Count 234 10^3/uL (150-450); Red Blood Count 4.16 10^6 /uL (3.70-4.87); Red Cell Distribution Width 20 % (10-15); White Blood Count 5.9 10^3/uL (3.5-10.8)
[2020-03-03 07:51] LABS: INR 1.06 (0.82-1.09)
[2020-03-03] MEDS: Mometasone/Formoter 200/5 MDI INH SCH ×2 (08:02→21:29)
[2020-03-03] MEDS: Albuterol HFA INHALER 8 gm MDI INH PRN ×2 (08:02→21:30)
[2020-03-03 08:06] LABS: BUN/Creatinine Ratio 18.2 (8-20); Calcium 8.7 mg/dL (8.6-10.3); EGFR African American 112.5 (>60); Potassium 4.2 mmol/L (3.5-5.0)
[2020-03-03] MEDS: Enoxaparin 40 MG/0.4 ML SYR SUBCUT SCH (21:15)
[2020-03-04] MEDS ORDERED: Vancomycin Trough Check NOTE FOLLOW UP ONE (06:30)
[2020-03-04] MEDS: Mometasone/Formoter 200/5 MDI INH SCH ×2 (08:42→19:22)
[2020-03-04] MEDS: Albuterol HFA INHALER 8 gm MDI INH PRN (08:44)
[2020-03-04] MEDS ORDERED: Ondansetron ODT 4 mg TAB 4 MG TAB SL PRN (13:31)
[2020-03-04] MEDS: Enoxaparin 40 MG/0.4 ML SYR SUBCUT SCH (21:50)
[2020-03-05 06:35] LABS: BUN/Creatinine Ratio 15.2 (8-20); Calcium 8.9 mg/dL (8.6-10.3); EGFR African American 112.5 (>60); Potassium 4.2 mmol/L (3.5-5.0)
[2020-03-05] MEDS: Mometasone/Formoter 200/5 MDI INH SCH ×2 (09:06→20:14)
[2020-03-05] MEDS: Enoxaparin 40 MG/0.4 ML SYR SUBCUT SCH (21:21)
[2020-03-06 06:14] LABS: BUN/Creatinine Ratio 15.2 (8-20); Calcium 9.1 mg/dL (8.6-10.3); EGFR African American 112.5 (>60); Potassium 4.2 mmol/L (3.5-5.0)
[2020-03-06] MEDS: Mometasone/Formoter 200/5 MDI INH SCH (07:16)
[2020-03-06] MEDS ORDERED: Cefepime 2 GM in Dextrose 2 GM/50 ML BAG IV SCH (12:30)
[2020-03-06 15:39] VITALS: BP 131/75
== END 2020-03-06 16:35 | DRG 383 ==
LOC: ED 06:18 → MED 16:44 → SSU 03-04 19:43
PROVIDERS: ADMIT Student in an Organized Health Care Education/Training Program; ATTEND Student in an Organized Health Care Education/Training Program